=== PATIENT | male | born 1960 | race Caucasian/White ===

== ENCOUNTER 2017-01-16 14:45 | Emergency (ER) | payer MEDICAID ==
[~2017-01-16] VITALS: Ht 167.6 cm; Wt 86.2 kg
--- NOTE | ~2017-01-16 | CT71 ---
[facility] A Service of [facility] RADIOLOGY TEXT RESULTS PATIENT: CAMERON WOODS LOCATION: [facility] : 64 UNIT #: [id number] AGE: [address]: Cedric Coffey MD SEX: M ORDER DR: [id number] [facility] [address]. [place], [place] [address] [id number] E MR#: [id number] #: [id number] NAME: CAMERON WOODS. : 1960 SEX: M STUDY DATE/TIME: 01/16/2017 17:51 UNIT: [facility] ROOM: STUDY DESCRIPTION: CT Head Wo Contrast Attending Physician: Cedric Coffey M.D. Ordering Physician: Cedric Coffey M.D. Primary Care Physician: No Primary Care Physician MEDICAL IMAGING REPORT This report is preliminary unless electronic signature is present EXAM Head CT without contrast HISTORY Headache, blurred vision for 15 days, worse while working in the sun and heat. There is a new displaced calvarial fracture. The mastoid air cells are clear. The visualized paranasal sinuses show only mild mucosal thickening. No air fluid level in the visualized paranasal sinuses. TECHNIQUE This CT exam was performed with one or more of the following radiation dose reduction techniques: automatic exposure control, adjustment of mA and/or kV according to patient size, and iterative reconstruction. FINDINGS There is no evidence for acute intracranial hemorrhage or extraaxial fluid collection. The ventricles are normal in size and configuration, and the lara-white junction is well maintained. There is a large amount of calcification associated with the pineal gland which is probably within the range of normal for age group. No intracranial mass effect is suspected. The basilar cisterns are patent. No acute cortical infarct is suspected. The lara-white junction is relatively well maintained. The positioning of the head CT is nontraditional. IMPRESSION No acute intracranial abnormality is suspected. Dictated by... Charlotte Salazar M.D. [facility] A Service of [facility] RADIOLOGY TEXT RESULTS PATIENT: CAMERON WOODS LOCATION: [facility] : 64 UNIT #: [id number] AGE: [address]: Cedric Coffey MD SEX: M ORDER DR: THIS IS AN ELECTRONICALLY VERIFIED REPORT Charlotte Salazar M.D. at 01/17/2017 7:09 AM Dianna TD: 01/16/2017 22:41 JOB #: [id number] MEDICAL IMAGING REPORT Page 1 of 1 COPY
[~2017-01-16 14:45] MED LIST: CIPRO PO; FLOMAX0.4 M1 PO; NO HOME MEDICATIONS
== END 2017-01-16 18:45 | disposition home or self-care (01) ==
LOC: CED 14:45
DX: R51 Headache (principal); Z79.899 Other long term (current) drug therapy
CPT/HCPCS: 36415; 70450; 96374; 96375; 99284; J1100; J1200; J1885; J2765